=== PATIENT | female | born 1975 | race Caucasian/White ===

== ENCOUNTER → 2016-07-14 | Outpatient (REF) ==
[~2016-07-14] MED LIST: ATIVAN0.5 MG PO; DEXAMETHASONE0.5 MG PO; KLONOPIN 1MG1 MG PO; LEVOTHYROXINE PO; LEXAPRO20 MG PO; VICODIN 5/5001 UDTAB PO
[2016-07-14 13:39] LABS: THYROID STIMULATING HORMONE 0.059 uIU/mL (0.465-4.680)
== END ==
LOC: ZLAB.WCH 12:44
PROVIDERS: Family Medicine
DX: Z01.89 Encounter for other specified special examinations (principal)

== ENCOUNTER → 2016-12-27 | Outpatient (REF) ==
[2016-12-28 10:02] LABS: THYROID STIMULATING HORMONE 0.611 uIU/mL (0.465-4.680)
== END ==
LOC: ZLAB.WCH 17:15
PROVIDERS: Family Medicine
DX: Z01.89 Encounter for other specified special examinations (principal)

== ENCOUNTER → 2017-12-22 | Outpatient (REF) ==
[2017-12-22 16:44] LABS: THYROID STIMULATING HORMONE 0.577 uIU/mL (0.465-4.680)
== END ==
LOC: ZLAB.WCH 16:02
PROVIDERS: Family Medicine
DX: Z01.89 Encounter for other specified special examinations (principal)